=== PATIENT | female | born 1950 | race Native Hawaiian/Other Pacific Islander ===

== ENCOUNTER 2019-04-23 15:39 | Outpatient (CLI) | payer OTHER ==
[2019-04-23 15:53] LABS: PLATELET COUNT 162 K/uL (152-353)
[2019-04-23 16:13] LABS: POTASSIUM 4.4 mmol/L (3.6-5.2)
== END 2019-04-23 23:03 | disposition home or self-care (01) ==
LOC: LAB 15:39
PROVIDERS: Nurse Practitioner Family
DX: Z00.00 Encounter for general adult medical examination without abnormal findings (principal); R53.83 Other fatigue; E03.8 Other specified hypothyroidism; H05.20 Unspecified exophthalmos; R53.81 Other malaise; E55.9 Vitamin D deficiency, unspecified; Z79.899 Other long term (current) drug therapy
CPT/HCPCS: 80053; 80061; 82306; 83036; 84439; 84443; 85027

== ENCOUNTER 2019-09-27 16:29 | Emergency (ER) | payer OTHER ==
[~2019-09-27] VITALS: Ht 157.5 cm; Wt 71.7 kg
[2019-09-27 16:49] LABS: PLATELET COUNT 194 K/uL (152-353)
[2019-09-27 16:53] LABS: POTASSIUM 3.8 mmol/L (3.6-5.2)
[2019-09-27 17:08] LABS: PARTIAL THROMBOPLASTIN TIME 25.2 SECONDS (24.5-33.6)
[2019-09-27 17:57] VITALS: BP 100/58; TEMP 98.3
== END 2019-09-27 18:01 | disposition short-term general hospital (02) ==
LOC: ED 16:29
PROVIDERS: Emergency Medicine
DX: I21.09 ST elevation (STEMI) myocardial infarction involving other coronary artery of anterior wall (principal); R73.9 Hyperglycemia, unspecified; F17.210 Nicotine dependence, cigarettes, uncomplicated
CPT/HCPCS: 36415; 80053; 82150; 82550; 82553; 83036; 83735; 83880; 84484; 85027; 85610; 85730; 93005; 96361; 96365; 96375; 96376; 99285; J1644; J2270; J2405; J3490

== ENCOUNTER 2021-06-12 11:39 | Observation (INO) | payer OTHER ==
[2021-06-12] VITALS (9 sets, daily range): BP systolic 106–156; BP diastolic 53–78; TEMP 97.7–98.8; Ht 157.5 cm; Wt 68.5 kg
[~2021-06-12] VITALS: Ht 157.5 cm; Wt 68.5 kg
[2021-06-12 12:07] LABS: PLATELET COUNT 200 K/uL (152-353)
[2021-06-12 12:15] LABS: POTASSIUM 4.6 mmol/L (3.6-5.2)
[2021-06-12 12:21] LABS: PARTIAL THROMBOPLASTIN TIME 28.5 SECONDS (24.5-33.6)
[2021-06-12] MEDS ORDERED: LIPITOR40 MG PO (20:06)
[2021-06-12] MEDS ORDERED: ELIQUIS5 MG PO (20:08)
[2021-06-12] MEDS ORDERED: METO25TA4 PO (20:09)
[2021-06-12] MEDS ORDERED: MONTELUKAST SOD10 MG PO (20:13)
[2021-06-12] MEDS ORDERED: JANUVIA25 MG PO (20:15)
[2021-06-12] MEDS ORDERED: LISI5TAB10 PO (20:16)
[2021-06-12] MEDS ORDERED: METF500T PO (20:19)
[2021-06-13] VITALS: BP 98/51; TEMP 98.1
[2021-06-13 04:00] VITALS: BP 100/62; TEMP 98.6
[2021-06-13 08:00] VITALS: BP 109/66; TEMP 98.4
[2021-06-13] MEDS ORDERED: PANTOPRAZOLE 40MG TA PO (09:25)
== END 2021-06-13 10:07 | disposition home or self-care (01) ==
LOC: ED 11:39 → MED/SURG 13:30
PROVIDERS: Hospitalist; ADMIT Internal Medicine Endocrinology, Diabetes & Metabolism; ATTEND Internal Medicine Endocrinology, Diabetes & Metabolism
DX: R07.89 Other chest pain (principal); I10 Essential (primary) hypertension; E78.49 Other hyperlipidemia; E11.9 Type 2 diabetes mellitus without complications; K21.9 Gastro-esophageal reflux disease without esophagitis; R06.02 Shortness of breath
CPT/HCPCS: 36415; 80053; 80061; 82550; 83880; 84484; 85027; 85610; 85730; 87635; 93005; 99220; 99284; G0378; J2270; J2405; U0003